=== PATIENT | male | born 1990 | race Caucasian/White ===

== ENCOUNTER → 2021-06-25 14:18 | Outpatient (CLI) | payer OTHER, SELFPAY ==
--- NOTE | 2021-06-25 16:45 | MRI_ITS ---
STUDY: MR Knee W/O Contrast 06/25/2021 8:39 PM REASON FOR EXAM: Male, 31 years old. LEFT knee pain,LBP, left leg pain TECHNIQUE: Standardized fat and water weighted pulse sequences were obtained in all 3 orthogonal planes. COMPARISON: None. FINDINGS: Normal medial meniscus. Normal hyaline cartilage of the medial femorotibial compartment. Normal medial femoral condyle and tibial plateau. Normal medial collateral ligamentous complex (MCL). Normal distal semimembranosus, gracilis and semitendinosus tendons. Normal lateral meniscus. Normal hyaline cartilage of the lateral femorotibial compartment. There is reactive marrow edema of the lateral tibial plateau. Normal proximal tibiofibular articulation. There is a partial sprain of the lateral collateral (fibular) ligament. Normal popliteus tendon. Normal biceps femoris tendon. Normal anterior cruciate ligament (ACL). Normal posterior cruciate ligament (PCL). Normal congruent patellofemoral articulation. Normal hyaline cartilage of the patellofemoral compartment. Normal medial and lateral patellar retinaculum. Normal quadriceps tendon. Normal patellar tendon. Normal Hoffa''s fat pad. There is no joint effusion. The soft tissues are unremarkable. The otherwise visualized osseous structures are unremarkable. MRI/Lower Ext Joint Only (Routine) IMPRESSION: There is a partial sprain of the lateral collateral (fibular) ligament. There is reactive marrow edema of the lateral tibial plateau. Electronically Signed: Kenan Hernandez MD at 20:42 EST ,
--- NOTE | 2021-06-25 17:30 | MRI_ITS ---
STUDY: MRI LUMBAR SPINE WITHOUT CONTRAST REASON FOR EXAM: Male, 31 years old. LBP, left leg pain TECHNIQUE: Standardized fat and water weighted pulse sequences were obtained in the sagittal and axial planes. COMPARISON: None FINDINGS: T11-T12 and T12-L1: (Sagittal only). Normal endplates. Normal disc height, hydration and morphology. No ventral extradural defect. Normal central canal and bilateral intervertebral neural foramina. Normal lumbar lordosis. There is no substantial scoliosis. Normal conus medullaris that terminates at the mid L1 vertebral body level. L1-2: Normal endplates. Normal disc height, hydration and morphology. Normal bilateral facet joints. Normal central canal and bilateral lateral recesses. Normal bilateral intervertebral neural foramina. L2-3: Normal endplates. Normal disc height, hydration and morphology. Normal bilateral facet joints. Normal central canal and bilateral lateral recesses. Normal bilateral intervertebral neural foramina. Prominent L3 benign vertebral body hemangioma. L3-4: Normal endplates. Normal disc height, hydration and morphology. Normal bilateral facet joints. Normal central canal and bilateral lateral recesses. Normal bilateral intervertebral neural foramina. L4-5: Normal endplates. Mild disc space height narrowing. Small ventral extradural defect due to small posterior bulging disc. Normal facet joints. Mild central canal stenosis with an AP canal diameter of 8.5 mm. Normal bilateral lateral recesses. Normal bilateral intervertebral neural foramina. L5-S1: Normal endplates. Minimal disc space height narrowing. Normal facet joints. Normal central canal and bilateral lateral recesses. Normal bilateral intervertebral neural foramina. Normal visualized sacral ala. Normal visualized paraspinous soft tissue structures. MRI/Spine Lumbar (Routine) IMPRESSION: 1. No MRI evidence of lumbar extruded disc fragment. 2. Mild central canal stenosis at L4-L5 disc space level with an AP canal diameter of 8.5 mm and small posterior bulging disc. Electronically Signed: Elier Meyer MD at 16:06 EST ,
--- NOTE | 2021-06-25 18:15 | MRI_ITS ---
EXAM: MR PELVIS WITHOUT INTRAVENOUS CONTRAST CLINICAL INDICATION: PELVIC pain,LBP, left leg pain TECHNIQUE: Multiplanar and multisequence MR images of the pelvis without intravenous contrast. This report was created using [employer] report generation technology. COMPARISON: None. FINDINGS: APPENDIX: No evidence of acute appendicitis. INTRAPERITONEAL SPACE: Unremarkable. No ascites or other fluid collection. BLADDER: Unremarkable. REPRODUCTIVE: Unremarkable as visualized. No mass. BONES/JOINTS: There are central disc herniations partially visualized on the lumbar spine at the level of L4-5 and L5-S1. MRI lumbar spine has been ordered. No suspicious lytic or blastic abnormality. SOFT TISSUES: Unremarkable. No pelvic wall hernia. LYMPH NODES: Unremarkable. No enlarged lymph nodes. MRI/Pelvis (Routine) IMPRESSION: 1. No acute findings of the pelvis. 2. There are central disc herniations partially visualized on the lumbar spine at the level of L4-5 and L5-S1. MRI lumbar spine has been ordered. Electronically Signed: Kenan Hernandez MD at 20:45 EST ,
== END ==
DX: M25.562 Pain in left knee (principal)
CPT/HCPCS: 72148; 72195; 73721

== ENCOUNTER 2022-04-20 07:51 | Emergency (ER) | payer OTHER, SELFPAY ==
[2022-04-20 07:52] VITALS: BP 143/88; PULSE 88; RESP 16; TEMP 36.3; O2SAT 100; BMI 26.4
--- NOTE | 2022-04-20 08:15 | CT_ITS ---
STUDY: CT LUMBAR SPINE WITHOUT CONTRAST REASON FOR EXAM: Male, 32 years old. Back pain RADIATION DOSAGE (If Supplied By Facility): CTDIvol = ( 13.84 ) mGy, DLP = ( 374.58 ) mGycm TECHNIQUE: The patient was scanned in a multi detector CT scanner. High resolution transaxial imaging was performed. Images were obtained from to . Sagittal and coronal images were reconstructed. Individualized dose optimization techniques were used for this CT. COMPARISON: None FINDINGS: Normal lumbar lordosis. There is no substantial scoliosis. Findings suggestive of a hemangioma of the L3 vertebrae. L1-2: Normal endplates. Normal disc height and morphology. Normal bilateral facet joints. Normal central canal and bilateral lateral recesses. Normal bilateral intervertebral neural foramina. L2-3: Normal endplates. Normal disc height and morphology. Normal bilateral facet joints. Normal central canal and bilateral lateral recesses. Normal bilateral intervertebral neural foramina. L3-4: Normal endplates. Normal disc height and morphology. Normal bilateral facet joints. Normal central canal and bilateral lateral recesses. Normal bilateral intervertebral neural foramina. L4-5: Normal endplates. Normal disc height and morphology. Normal bilateral facet joints. Normal central canal and bilateral lateral recesses. Normal bilateral intervertebral neural foramina. L5-S1: Normal endplates. Mild degree of diffuse posterior disc bulge. This causes minimal deformity along the anterior aspect of the thecal sac. No evidence of abnormal foraminal stenosis.. Normal bilateral facet joints. Normal central canal and bilateral lateral recesses. Normal bilateral intervertebral neural foramina. Normal visualized paraspinous soft tissue structures. CT/Spine Lumbar without Contrast IMPRESSION: Mild degree of diffuse posterior disc bulge at the L5-S1 level without significant stenosis. Findings suggestive of a hemangioma of the L3 vertebra. Electronically Signed: Ricardo Feldman MD at 8:46 EST ,
--- NOTE | 2022-04-20 08:16 | EDS_ITS ---
HPI History of Present Illness Chief Complaint: Back Informant: patient Narrative Narrative: Presents sudden lower back pain at work while walking down steps. No falls or injuries. No heavy lifting. No radicular symptoms. No loss of bowel or bladder control. Reports worked with the [employer] in the past had injuries with compression fractures previously. No surgical intervention. States feels with pain all the time however today worsened. No recent illness or fevers. Denies history of recreational drug use or IV drug use. States pain today however is lot more severe. Denies any allergies. No medications taken. He drove himself here. States pain wraps around to his abdomen. States pain causing difficulty to breathe. Review records noted had MRI lumbar spine June 20 to 10 months ago [facility] That noted L4-L5 central disc narrowing with mild protrusions. There is no noted previous fractures of the lumbar spine. Prior similar symptoms: Yes and With Prior Back Pain PFSH PFS Medical History Asthma Back fracture Depression, unspecified Mood disorder Home Medications ibuprofen 600 mg tablet 600 mg PO 4X/DAY PRN Pain Or Fever #20 tabs 04/20/22 [Rx Last Taken Unknown] orphenadrine citrate 100 mg tablet,extended release 100 mg PO BID PRN back pain #20 tabs 04/20/22 [Rx Last Taken Unknown] Allergy/AdvReac Type Severity Reaction Status Date / Time No Known Allergies Allergy Verified 04/20/22 07:56 Family History no significant family his Surgical History no surgical history Social History Smoking Status: Current every day smoker tobacco type: cigarettes ROS ROS ED Constitutional Constitutional ED: Denies chills, fever(s) or sweats Eyes Eyes: Denies change in vision ENT ENT ED: Denies dysphagia or sore throat Cardiovascular Cardiovascular: Denies chest pain, leg edema, palpitations or racing heartbeat Respiratory/Chest Respiratory/Chest: Denies cough, dyspnea or dyspnea on exertion Gastrointestinal Gastrointestinal: Denies abdominal pain, diarrhea, nausea or vomiting Genitourinary Genitourinary ED: Denies dysuria, hematuria or urinary frequency Musculoskeletal Musculoskeletal: Reports back pain; Denies extremity pain or neck pain Integumentary Denies rash or wounds Neurologic Neurologic: Denies headache(s), paresthesias or weakness EXAM Physical Exam Const Vital Signs: 04/20/22 07:52 Temperature 97.3 F L Temperature Source Temporal Pulse Rate 88 Respiratory Rate 16 Blood Pressure 143/88 H Blood Pressure Mean 106 Pulse Ox 100 Oxygen Delivery Method Room Air Positive well nourished and well developed Constitutional Narrative: Uncomfortable, nontoxic. General Appearance ED: well developed HEENT Reports moist mucous membranes normocephalic and atraumatic Eyes PERRL, EOMs intact bilaterally and conjunctivae normal General Eye ED: Yes normal appearance of both eyes Neck no lymphadenopathy and supple General: Negative for tenderness Chest Wall Chest: Negative for tenderness Resp normal respiratory effort and normal air movement Effort and Inspection: symmetric chest movement; Negative for respiratory distress Cardio regular rate, regular rhythm and no murmurs Peripheral Pulses: pulses 2+ throughout GI normal to inspection, nondistended, normoactive bowel sounds and non-tender Palpation: Negative for guarding or rebound tenderness present Back/Spine no CVA tenderness, normal to inspection and no thoracic nor lumbar tenderness Back/Spine Narrative: No erythema no ecchymosis of the lumbar spine. Straight leg test negative bilaterally. 2- 3+ patellar reflex bilaterally. Extremity normal to inspection General Extremety ED: Negative for edema or tenderness General Extremity: Negative for edema Neuro oriented x3 and no sensory deficits noted Sensorium / Orientation: awake and alert Skin no rashes or lesions noted and no wounds MDM MDM MDM Narrative Medical decision making narrative: Patient pain mid lumbar rating around to his abdomen. No cauda equina symptoms no red flag symptoms for spinal cord issues. There is no indication for emergent MRIs. He was treated symptomatic IM Toradol and Norflex. He was monitored. Lumbar spine CT was obtained with his concerns noting mild degree of posterior disc bulge L5-S1 with no stenosis. Had similar MRI findings in June of this. Also noted L3 hemangioma. I discussed the findings with the radiologist, discussed this is benign and no further work-up is necessary including any emergent MRIs. Discussed the findings with the patient. [facility] Symptomatically was improving. Prescription ibuprofen and Norflex sent to his pharmacy. Images on a disc was made copies of report for him to [facility] for [facility] evaluation and testing as needed. Patient able to ambulate out of the department. All questions were answered. Radiography Diagnostic Testing: Clinical Impression(s) from Imaging Studies Lumbar Spine CT 04/20/22 08:15 IMPRESSION: Mild degree of diffuse posterior disc bulge at the L5-S1 level without significant stenosis. Findings suggestive of a hemangioma of the L3 vertebra. Electronically Signed: Ricardo Feldman MD at 8:46 EST , Discharge Plan Triage Chief Complaint: Back ED Provider: Prosper Akhtar Dx/Rx/DC Orders Clinical Impression: Lumbar strain, Back pain, Hemangioma Instructions: Relieving Back Pain Prescriptions: New ibuprofen 600 mg tablet 600 mg PO 4X/DAY PRN (Reason: Pain Or Fever) Qty: 20 0RF orphenadrine citrate 100 mg tablet extended release 100 mg PO BID PRN (Reason: back pain) Qty: 20 0RF [facility] [[facility] Provider] - 3-5 Days if not improving Activity Restrictions/Additional Instructions: CT lumbar notes L5-S1 small disc herniation. Notes benign L3 hemangioma discussion with radiology. Follow-up with your doctor for reevaluation take m edications as prescribed. No driving or operating heavy machinery while taking Norflex. Disposition Disposition: Home, Self Care Discharge Date/Time: 04/20/22 10:51
[2022-04-20] MEDS: Ketorolac 30 MG/ML Syringe IM (08:21)
[2022-04-20] MEDS: Orphenadrine 60 MG/2 ML Ampul IM (08:22)
== END 2022-04-20 10:51 | disposition home or self-care (01) ==
PROVIDERS: Emergency Provider Emergency Medicine; Visit Provider Emergency Medicine
DX: S39.012A Strain of muscle, fascia and tendon of lower back, initial encounter (principal); D18.01 Hemangioma of skin and subcutaneous tissue; F17.210 Nicotine dependence, cigarettes, uncomplicated; X58.XXXA Exposure to other specified factors, initial encounter
CPT/HCPCS: 72131; 96372; 99282

== ENCOUNTER 2022-10-28 20:32 | Emergency (ER) | payer OTHER, SELFPAY ==
[2022-10-28 20:33] VITALS: BP 146/93; PULSE 99; RESP 14; TEMP 36.6; O2SAT 96; BMI 27.9
--- NOTE | 2022-10-28 20:44 | RAD_ITS ---
STUDY: X-RAY - LEFT ANKLE REASON FOR EXAM: Male, 32 years old. Trauma TECHNIQUE: 3 view(s) of the ankle. COMPARISON: None. FINDINGS: Normal visualized distal tibia and fibula. Normal medial and lateral malleoli. Normal tibiotalar articulation and ankle mortise. Normal visualized talus and calcaneus. The visualized subtalar, talonavicular, calcaneocuboid and tarsal articulations are normal. There is no demonstrated fracture. The soft tissue structures are unremarkable. RAD/Ankle min 3 Views IMPRESSION: Normal x-ray examination of the ankle. Electronically Signed: Bony Pandey MD at 21:07 EDT ,
--- NOTE | 2022-10-28 20:45 | ED.VIS.LOWEX ---
HPI History of Present Illness Chief Complaint: Lower Extremity Injury Informant: patient Narrative Narrative: Patient presents with pain in his left ankle and heel. About 2 weeks ago patient jumped into the pool to make a large plaques for his children. He ended up going deeper than expected and hit his heel and ankle on the bottom of the pool and twisted it. Was seen in urgent care and had x-rays that were negative but told to follow-up. He has been taking Motrin 600 mg 4 times a day and it still sore. He states he has been walking on his toes so his Achilles tendon is getting sore and he does have a history of an Achilles tendon strain but not rupture in the past. No fevers or chills. No swelling or pain in the calf. No history of DVT or PE. No chest pain or dyspnea. [facility] Medical History Asthma Back fracture Depression, unspecified Mood disorder Home Medications ibuprofen 600 mg tablet 600 mg PO 4X/DAY PRN Pain Or Fever #20 tabs 04/20/22 [Rx Last Taken Unknown] orphenadrine citrate 100 mg tablet,extended release 100 mg PO BID PRN back pain #20 tabs 04/20/22 [Rx Last Taken Unknown] prednisone 20 mg tablet 60 mg (3 x 20 mg) PO DAILY #15 TABLETS 10/28/22 [Rx Last Taken Unknown] Allergy/AdvReac Type Severity Reaction Status Date / Time No Known Allergies Allergy Verified 04/20/22 07:56 Social History Smoking Status: Current every day smoker tobacco type: cigarettes ROS ROS ED Constitutional Constitutional ED: Denies chills or fever(s) Cardiovascular Cardiovascular: Denies chest pain, palpitations or racing heartbeat Respiratory/Chest Respiratory/Chest: Denies cough or dyspnea Musculoskeletal Musculoskeletal: Reports arthralgias; Denies myalgias or neck pain Integumentary Denies Abrasions or rash Neurologic Neurologic: Denies paresthesias or weakness Hematologic/Lymphatic Hematologic/Lymphatic: Denies easy bleeding or easy bruising Allergic/Immunologic Allergic/Immunologic ED: Denies urticaria EXAM Physical Exam Narrative Exam Narrative: Patient is awake alert no acute distress. HEENT shows no trauma Cardiorespiratory shows easy unlabored breathing. Saturations are normal at 96% on room air. Extremity shows no swelling. He has no asymmetry. No cord. No distended veins. No tenderness along the deep venous system. He does have tenderness at the lateral malleolus. He also does have some tenderness with palpation anywhere on the tip of the calcaneus. But there is no swelling or erythema. His Achilles is slightly tender but it is intact by palpation and Lock test. There is no swelling of the foot. Pulses are normal sensation is normal. There are no color changes. Const Vital Signs: 10/28/22 20:33 Temperature 97.8 F Temperature Source Temporal Pulse Rate 99 Respiratory Rate 14 Blood Pressure 146/93 H Blood Pressure Mean 110 Pulse Ox 96 Oxygen Delivery Method Room Air MDM MDM MDM Narrative Medical decision making narrative: My independent interpretation of the patient's 5 image x-rays including left ankle and calcaneus show no sign of fracture. Boehler's angle is normal. Final reading shows no acute process. We did talk with patient about options. He has been taking nonsteroidal steadily for 2 weeks. He still has soreness. We will try him on a short course of prednisone. I explained that this can cause some looseness and weakness of tendon so he needs to be careful for the next month or so. But this can also calm down inflammation. I will given him to orthopedics. If he is not improving over the next weeks or months he may end up needing further imaging. There is no indication of instability when I check ankles drawer or inversion eversion. Radiography Diagnostic Testing: Clinical Impression(s) from Imaging Studies Ankle X-Ray 10/28/22 20:44 IMPRESSION: Normal x-ray examination of the ankle. Electronically Signed: Bony Pandey MD at 21:07 EDT , Os Calcis X-ray 10/28/22 20:50 IMPRESSION: Normal x-ray examination of the calcaneus. Electronically Signed: Bony Pandey MD at 21:12 EDT , Discharge Plan Triage Chief Complaint: Lower Extremity Injury ED Provider: Dima Crisostomo Dx/Rx/DC Orders Clinical Impression: Achilles tendinitis, left leg, Injury of ankle, left Instructions: ED Tendonitis Prescriptions: New prednisone 20 mg tablet 60 mg PO DAILY Qty: 15 0RF No Action ibuprofen 600 mg tablet 600 mg PO 4X/DAY PRN (Reason: Pain Or Fever) Qty: 20 0RF orphenadrine citrate 100 mg tablet extended release 100 mg PO BID PRN (Reason: back pain) Qty: 20 0RF [facility] Provider: [facility] Referrals: Tony Crisostomo MD [Med Staff - Active Staff] - As soon as possible [facility] [Primary Care Provider] - As Needed Disposition Disposition: Home, Self Care
--- NOTE | 2022-10-28 20:50 | RAD_ITS ---
STUDY: X-RAY - LEFT CALCANEUS REASON FOR EXAM: Male, 32 years old. Trauma TECHNIQUE: 2 view(s) of the calcaneus were obtained. COMPARISON: None. FINDINGS: Normal visualized calcaneus. There is no demonstrated fracture. RAD/Calcaneus min 2 Views IMPRESSION: Normal x-ray examination of the calcaneus. Electronically Signed: Bony Pandey MD at 21:12 EDT ,
[2022-10-28] MEDS: predniSONE 20 MG Tablet 60 MG PO (21:36)
== END 2022-10-28 21:42 | disposition home or self-care (01) ==
PROVIDERS: Emergency Provider Emergency Medicine; Visit Provider Emergency Medicine
DX: S99.912A Unspecified injury of left ankle, initial encounter (principal); M76.62 Achilles tendinitis, left leg; F17.210 Nicotine dependence, cigarettes, uncomplicated; W16.522A Jumping or diving into swimming pool striking bottom causing other injury, initial encounter
CPT/HCPCS: 73610; 73650; 99282

== ENCOUNTER 2023-04-09 15:08 | Emergency (ER) | payer OTHER, SELFPAY ==
[2023-04-09 15:09] VITALS: BP 127/91; PULSE 78; RESP 16; TEMP 36.3; O2SAT 98; BMI 27.8
--- NOTE | 2023-04-09 15:20 | RAD_ITS ---
STUDY: X-RAY - RIGHT HAND REASON FOR EXAM: Male, 33 years old. Pain TECHNIQUE: 3 view(s) of the hand. COMPARISON: None. FINDINGS: Normal radiocarpal articulation. Normal distal radioulnar joint. Normal visualized carpal bones. Normal carpal articulations Normal carpometacarpal articulation of the thumb. Normal second through fifth carpometacarpal joints. There is healed fracture of the distal shaft of the fifth metacarpal. Normal metacarpophalangeal joint of the thumb. Normal interphalangeal joint of the thumb. Normal proximal and distal phalanges of the thumb. Normal metacarpophalangeal joints of the second through fifth fingers. Normal proximal and distal interphalangeal joints of the second through fifth fingers. Normal phalanges of the second through fifth fingers. There is no acute fracture. RAD/Hand Min 3 Views IMPRESSION: No acute fracture. Healed fifth metacarpal fracture. Electronically Signed: Shaji aGray MD at 15:45 EST ,
--- NOTE | 2023-04-09 15:32 | EX.ED.UPPERE ---
HPI <JENNIFER Knight - Last Filed: 04/09/23 15:53> History of Present Illness Chief Complaint: Upper Extremity Injury Narrative Narrative: Patient states he was untangling dog legs and hit his right thumb on a door frame and has pain and swelling of the area. He is right-hand dominant. No weakness or paresthesias. PFSH <JENNIFER Knight - Last Filed: 04/09/23 15:53> [facility] Medical History Asthma Back fracture Depression, unspecified Mood disorder Home Medications ibuprofen 600 mg tablet 600 mg PO 4X/DAY PRN Pain Or Fever #20 tabs 04/20/22 [Rx Last Taken Unknown] orphenadrine citrate 100 mg tablet,extended release 100 mg PO BID PRN back pain #20 tabs 04/20/22 [Rx Last Taken Unknown] prednisone 20 mg tablet 60 mg (3 x 20 mg) PO DAILY #15 TABLETS 10/28/22 [Rx Last Taken Unknown] Allergy/AdvReac Type Severity Reaction Status Date / Time No Known Allergies Allergy Verified 04/09/23 15:10 Social History Smoking Status: Current every day smoker tobacco type: cigarettes ROS <JENNIFER Knight - Last Filed: 04/09/23 15:53> ROS ED ROS Narrative Neuro: Negative for motor/sensory dysfunction. Skin: Negative for wound. Musc: Positive for right hand pain, swelling, trauma. EXAM <JENNIFER Knight - Last Filed: 04/09/23 15:53> Physical Exam Narrative Exam Narrative: CONST: Patient sitting in no acute distress. EYES: Normal inspection. NECK: Normal inspection. SKIN: Color normal, no rash, warm, dry, intact. EXTREMITIES: Soft tissue swelling and tenderness right thumb metacarpal and proximal phalanx and over the thenar eminence. No wrist or scaphoid tenderness, normal motor and sensory function median radial ulnar distributions, 2+ radial pulse and brisk cap refill in all digits. NEURO: Oriented x4. PSYCH: Normal affect. Const Vital Signs: 04/09/23 15:09 Temperature 97.3 F L Temperature Source Temporal Pulse Rate 78 Respiratory Rate 16 Blood Pressure 127/91 H Blood Pressure Mean 103 Pulse Ox 98 Oxygen Delivery Method Room Air [facility] <JENNIFER Knight - Last Filed: 04/09/23 15:53> [facility] Narrative Medical decision making narrative: Patient smacked his hand on the door frame and has pain in the thumb. He is tender diffusely over the thumb and out into the thenar eminence. No scaphoid or wrist tenderness. He is slightly limited thumb range of motion due to pain but is otherwise neurovascularly intact. Differential includes contusion versus fracture. X-rays negative for acute findings so I discussed symptomatic care and he was discharged in stable condition. <Dr. Dima Crisostomo MD - Last Filed: 04/09/23 15:44> [facility] Treatment and Re-Evaluation Narrative: I have personally performed a face to face assessment of the patient and have reviewed the RELL Note. I performed a substantive portion of the visit including all aspects of the following. My tamayo findings include: History: Patient was pulling up on some dog leads trying to untangle them. He accidentally hit his hand in a header above him. He hit his thumb and has pain down the thumb and into the thenar eminence. It does not progress into the wrist. The other fingers feel fine. He has had a history of a boxer fracture on that hand years ago but he is not hurting in that area. Exam: Contusion over the dorsum of the thumb but no deformity. Range of motion is good. Mild nonfocal tenderness. No snuffbox tenderness. Medical Decision Making: My independent interpretation of the patient's three-view x-ray of the right hand does show his prior healed boxer's fracture but I see no acute process. Final reading is pending. Discharge Plan Triage Chief Complaint: Upper Extremity Injury ED Midlevel Provider: Chelsea Weldon ED Provider: Dima Crisostomo Dx/Rx/DC Orders Clinical Impression: Contusion of right thumb Instructions: ED Contusion, Upper Extremity Prescriptions: No Action ibuprofen 600 mg tablet 600 mg PO 4X/DAY PRN (Reason: Pain Or Fever) Qty: 20 0RF orphenadrine citrate 100 mg tablet extended release 100 mg PO BID PRN (Reason: back pain) Qty: 20 0RF prednisone 20 mg tablet 60 mg PO DAILY Qty: 15 0RF [facility] [Primary Care Provider] - Activity Restrictions/Additional Instructions: Ice and take Tylenol or ibuprofen as needed Disposition Disposition: Home, Self Care
== END 2023-04-09 16:06 | disposition home or self-care (01) ==
PROVIDERS: Emergency Provider Emergency Medicine; Visit Provider Emergency Medicine
DX: S60.011A Contusion of right thumb without damage to nail, initial encounter (principal); F17.210 Nicotine dependence, cigarettes, uncomplicated; W22.09XA Striking against other stationary object, initial encounter; Y93.89 Activity, other specified
CPT/HCPCS: 73130; 99282